=== PATIENT | female | born 1990 | race Caucasian/White ===

== ENCOUNTER 2016-07-05 01:10 | Emergency (ER) | payer MEDICAID, OTHER ==
--- NOTE | 2016-07-05 01:38 | EDM.PDOC ---
ED HPI ENT - General Chief Complaint: Fever Stated Complaint: FEVER CHILLS Time Seen by Provider: 07/05/16 01:18 Source of Information: Reports: Patient History Limitations: Reports: No limitations - History of Present Illness INITIAL COMMENTS - FREE TEXT/NARRATIVE: The patient presents with a sore throat, fever, chills, congestion. The sore throat started a few days ago but the fever and chills started yesterday at 10pm. She has no cough. Her boyfriend is sick. She has no chest pain or shortness of breath. She has no nausea or vomiting. She has no health problems. Timing/Duration: Reports: Day(s): (2) Severity: moderate Location: Reports: throat Quality: Reports: Sharp Improves with: Reports: None Worsens with: Reports: None Associated Symptoms: Reports: fever/chills. Denies: cough, loss of appetite, nausea/vomiting - Related Data Allergies/ADRs: Allergies Allergy/AdvReac Type Severity Reaction Status Date / Time peanut Allergy Bronchospas Verified 07/05/16 01:23 ms Penicillins Allergy Nausea Verified 07/05/16 01:23 pollen extracts Allergy Other Verified 07/05/16 01:23 Sulfa (Sulfonamide Allergy Nausea Verified 07/05/16 01:23 Antibiotics) sulfamethoxazole Allergy Nausea Verified 07/05/16 01:23 [From Bactrim] tree nut Allergy Bronchospas Verified 07/05/16 01:23 ms trimethoprim [From Bactrim] Allergy Nausea Verified 07/05/16 01:23 dust Allergy Other Uncoded 07/05/16 01:23 Home Meds: Home Meds Levonorgestrel [Mirena] 1 each IY ASDIRECTED 07/05/16 [History] Past Medical History - Past Health History Medical/Surgical History: Denies Medical/Surgical History HEENT History: Reports: Sinusitis, Other (see below) Other HEENT History: allergies Gastrointestinal History: Reports: Irritable bowel syndrome - Past Surgical History GI Surgical History: Reports: Appendectomy Musculoskeletal Surgical History: Reports: Arthroscopic knee Social & Family History - Family History Family Medical History: Noncontributory - Tobacco Use Smoking Status *Q: Never Smoker - Caffeine Use Caffeine Use: Reports: Soda Other Caffeine Use: rare to occasional - Recreational Drug Use Recreational Drug Use: No ED ROS ENT - Review of Systems Review Of Systems: See Below Constitutional: Reports: fever, chills, malaise, weakness, fatigue HEENT: Reports: Throat pain, Other (congestion) Respiratory: Reports: No Symptoms Cardiovascular: Reports: No symptoms, Palpitations GI/Abdominal: Reports: No symptoms : Reports: no symptoms Musculoskeletal: Reports: no symptoms Skin: Reports: no symptoms ED EXAM, ENT - Physical Exam Exam: See Below Exam Limited By: No limitations General Appearance: alert, no apparent distress Ears: normal external exam, normal canal, normal TMs Nose: normal inspection Mouth/Throat: Pharyngeal erythema, Tongue swelling, Tonsillar erythema Head: atraumatic, normocephalic Neck: lymphadenopathy (L), lymphadenopathy (R) Respiratory/Chest: no respiratory distress, lungs clear, normal breath sounds Cardiovascular: regular rate, rhythm, no edema, no murmur GI/Abdominal: soft, non tender, no organomegaly, no mass Back: normal inspection Extremities: normal inspection Course - Vital Signs Last Recorded V/S: Last Vital Signs Temp 99.6 F 07/05/16 01:34 Pulse 100 07/05/16 01:17 Resp 18 07/05/16 01:17 BP 123/75 07/05/16 01:17 Pulse Ox 100 07/05/16 01:17 - Orders/Labs/Meds Orders: Active Orders 24 hr Category Date Time Status CULTURE STREP A CONFIRMATION [] Stat Lab 07/05/16 01:32 Results STREP SCRN A RAPID W CULT CONF [] Stat Lab 07/05/16 01:32 Results - Re-Assessments/Exams Free Text/Narrative Re-Assessment/Exam: 07/05/16 01:38 I will check an influenza and Strep. 07/05/16 02:25 The influenza and strep are negative. I feel she has a different type of viral illness such as the parainfluenza virus. I will discharge her home. Departure - Departure Time of Disposition: 02:25 Disposition: Home, Self-Care 01 Condition: good Clinical Impression: Viral upper respiratory illness Referrals: Dulce Isaac, [employer] [Primary Care Provider] - 1 Week Forms: ED Department Discharge Additional Instructions: Take tylenol or motrin for the fever and pain. Drink plenty of fluids. Try to drink at least 8 eight ounce glasses of water. Get plenty of rest. Please return if you are worse. - My Orders Last 24 Hours: My Active Orders 07/05/16 01:32 CULTURE STREP A CONFIRMATION [RM] Stat STREP SCRN A RAPID W CULT CONF [RM] Stat - Assessment/Plan Last 24 Hours: My Active Orders 07/05/16 01:32 CULTURE STREP A CONFIRMATION [] Stat STREP SCRN A RAPID W CULT CONF [] Stat
[2016-07-05 02:43] VITALS: BP 122/74
== END 2016-07-05 02:32 | disposition home or self-care (01) ==
LOC: JD.ED 01:10
DX: J39.9 Disease of upper respiratory tract, unspecified (principal); Z88.1 Allergy status to other antibiotic agents; Z90.49 Acquired absence of other specified parts of digestive tract; Z91.09 Other allergy status, other than to drugs and biological substances; Z91.010 Allergy to peanuts; Z88.0 Allergy status to penicillin; Z88.2 Allergy status to sulfonamides
CPT/HCPCS: 87081; 87430; 87804; 99282; 99283